=== PATIENT | female | born 1950 | race Caucasian/White ===

== ENCOUNTER → 2016-05-10 | Outpatient (CLI) | payer OTHER | LOC: RAD 12:12 | DX: I50.9 Heart failure, unspecified (principal); I25.10 Atherosclerotic heart disease of native coronary artery without angina pectoris | CPT/HCPCS: 71010; 71020 ==

== ENCOUNTER 2016-10-23 19:09 | Inpatient (IN) | payer OTHER, MEDICARE ==
[~2016-10-23] VITALS: Ht 162.6 cm; Wt 102.1 kg
[2016-10-23 19:42] LABS: BASOPHIL COUNT 0.1 K/uL (0-0.1); EOSINOPHIL (%) 2.1 % (0-5); EOSINOPHIL COUNT 0.2 K/uL (0-0.3); HEMATOCRIT 38.7 % (36.0-46.0); IMMATURE GRANULOCYTE (%) 0.4 % (0.0-0.7); INSTRUMENT ABS NEUTROPHIL CT 6.1 K/uL; MCH 30.9 PG (29.0-34.0); MCHC 34.4 G/DL (30.0-36.0); MEAN PLAT.VOLUME 11.3 uM^3 (9.5-12.4); MONOCYTE (%) 9.2 % (3-12); MONOCYTE COUNT 0.8 K/uL (0-0.8); NEUTROPHIL COUNT 6.1 K/uL (1.8-6.4); PLATELET COUNT 172 K/uL (156-360); RBC DIS.WIDTH-CV 13.3 % (11.8-14.6); RBC DIS.WIDTH-SD 43.6 % (39-53); WHITE BLOOD COUNT 8.1 K/uL (4.1-10.2)
[2016-10-23 19:55] LABS: CHLORIDE 91 mEq/L (99-109); POTASSIUM 4.2 mEq/L (3.7-5.4); SODIUM 124 mEq/L (136-147)
[2016-10-23 19:58] LABS: GLUCOSE 148 mg/dL (70-99)
[2016-10-23 19:59] LABS: ANION GAP 10 MEQ/L (2-14)
[2016-10-23 20:00] LABS: TOTAL BILIRUBIN 0.6 mg/dL (0.0-1.0)
[2016-10-23 20:01] LABS: ALKALINE PHOSPHATASE 146 IU/L (3-129); GFR ESTIMATE (CALCULATED) > 59 mL/min/
[2016-10-23 20:02] LABS: UREA NITROGEN (BUN) 22 mg/dL (9-23)
[2016-10-23 20:05] LABS: TROP-I INTERPRETATION NEGATIVE; TROPONIN-I 0.08 ng/mL (0.0-0.30)
[2016-10-23 20:26] LABS: ADD MIUA? YES; BILIRUBIN NEGATIVE; BLOOD MODERATE; COLOR YELLOW ((YELLOW)); GLUCOSE (STRIP) NEGATIVE; KETONES NEGATIVE; LEUKOCYTES NEGATIVE; NITRITE NEGATIVE; PROTEIN (STRIP) NEGATIVE; SPECIFIC GRAVITY 1.012 (1.000-1.030); UROBILINOGEN 0.2 MG/DL (0.2-1.0)
[2016-10-23 20:32] LABS: BACTERIA NONE SEEN /HPF; EPITHELIAL CELLS RARE /HPF; HYALINE CASTS TNTC /LPF; MUCUS TRACE /LPF; RED BLOOD CELLS 0-5 /HPF (0-5); WHITE BLOOD CELLS 0-5 /HPF (0-5)
[2016-10-23] MEDS ORDERED: ZOFRAN4 MG PO (23:00)
[2016-10-23] MEDS ORDERED: LASIX80 MG PO (23:01)
[2016-10-23] MEDS ORDERED: SYNTHROID125 MCG PO (23:02)
[2016-10-23] MEDS ORDERED: MIRALAX17 GM PO (23:04)
[2016-10-23] MEDS ORDERED: ROCEPHIN1000 MG IM (23:05)
[2016-10-23] MEDS ORDERED: SENNA8.6 MG PO ×2 (23:06→23:08)
[2016-10-23] MEDS ORDERED: ALDACTONE25 MG PO (23:09)
[2016-10-23] MEDS ORDERED: BUMEX1 MG PO (23:11)
[2016-10-23] MEDS ORDERED: HUMULIN N100 UNITS/ SC (23:15)
[2016-10-23] MEDS ORDERED: HUMULIN R100 UNITS/ SC (23:16)
[2016-10-23] MEDS ORDERED: NEURONTIN800 MG PO (23:19)
[2016-10-23] MEDS ORDERED: ARTIFICIAL TEAR1510 BOTH EYES (23:20)
[2016-10-23] MEDS ORDERED: ATIVAN0.5 MG PO (23:21)
[2016-10-23] MEDS ORDERED: COMPAZINE10 MG PO (23:22)
[2016-10-23] MEDS ORDERED: DULCOLAX10 MG PR (23:24)
[2016-10-23] MEDS ORDERED: GLUCOSE GEL38 GM PO (23:25)
[2016-10-23] MEDS ORDERED: MORPHINE CON20 MG/M1 PO (23:29)
[2016-10-23] MEDS ORDERED: NITROSTAT0.4 MG SL (23:32)
[2016-10-23] MEDS ORDERED: ANASPAZ0.125 MG PO (23:32)
[2016-10-23] MEDS ORDERED: TYLENOL EXTRA500 MG PO (23:34)
[2016-10-24 02:10] VITALS: BP 111/66
[2016-10-24 02:29] LABS: TROP-I INTERPRETATION NEGATIVE; TROPONIN-I 0.07 ng/mL (0.0-0.30)
[2016-10-24] MEDS ORDERED: CLARITIN,ALAVAR10 MG PO (03:07)
[2016-10-24] MEDS ORDERED: ALDACTONE25 MG PO (03:09)
[2016-10-24 03:46] VITALS: BP 115/68
[2016-10-24 06:21] LABS: POINT-OF-CARE METER ID UU14162508
[2016-10-24 08:10] VITALS: BP 121/68
[2016-10-24 09:11] LABS: ANION GAP 7 MEQ/L (2-14); CHLORIDE 88 MEQ/L (99-109); POTASSIUM 4.4 MEQ/L (3.7-5.4); SAMPLE HEMOLYSIS CHECK 0; SAMPLE ICTERIC CHECK 0; SAMPLE LIPEMIA CHECK 0; SODIUM 123 MEQ/L (136-147); TOTAL BILIRUBIN 0.8 MG/DL (0.0-1.0)
[2016-10-24 09:16] LABS: ALKALINE PHOSPHATASE 126 IU/L (3-129); GFR ESTIMATE (CALCULATED) > 59 mL/min/; UREA NITROGEN (BUN) 24 mg/dL (9-23)
[2016-10-24 09:18] LABS: GLUCOSE 82 mg/dL (70-99)
[2016-10-24 09:21] LABS: TROP-I INTERPRETATION NEGATIVE; TROPONIN-I 0.07 ng/mL (0.0-0.30)
[2016-10-24 11:50] VITALS: BP 125/80
[2016-10-24 12:27] LABS: POINT-OF-CARE METER ID UU14162508
[2016-10-24 15:36] VITALS: BP 124/70
[2016-10-24 16:50] LABS: POINT-OF-CARE METER ID UU14162508
[2016-10-24 20:22] VITALS: BP 127/85
[2016-10-24 21:13] LABS: POINT-OF-CARE METER ID UU14162508
[2016-10-25 00:02] VITALS: BP 119/79
[2016-10-25 03:11] LABS: POINT-OF-CARE METER ID UU14162508
[2016-10-25 03:50] VITALS: BP 138/83
[2016-10-25 06:18] LABS: POINT-OF-CARE METER ID UU14162508
[2016-10-25 07:21] LABS: BASOPHIL COUNT 0.1 K/uL (0-0.1); EOSINOPHIL (%) 4.1 % (0-5); EOSINOPHIL COUNT 0.3 K/uL (0-0.3); HEMATOCRIT 37.8 % (36.0-46.0); IMMATURE GRANULOCYTE (%) 0.7 % (0.0-0.7); IMMATURE GRANULOCYTE COUNT 0.1 K/uL; INSTRUMENT ABS NEUTROPHIL CT 4.9 K/uL; LYMPHOCYTE COUNT 1.4 K/uL (1.0-2.8); MCH 31.8 PG (29.0-34.0); MCHC 34.7 G/DL (30.0-36.0); MCV 91.7 FL (83-99); MEAN PLAT.VOLUME 11.7 uM^3 (9.5-12.4); MONOCYTE (%) 11.1 % (3-12); MONOCYTE COUNT 0.8 K/uL (0-0.8); NEUTROPHIL (%) 64.6 % (45-76); NEUTROPHIL COUNT 4.9 K/uL (1.8-6.4); PLATELET COUNT 162 K/uL (156-360); RBC DIS.WIDTH-CV 13.7 % (11.8-14.6); RBC DIS.WIDTH-SD 45.8 % (39-53); RED BLOOD COUNT 4.12 M/uL (3.80-5.20); WHITE BLOOD COUNT 7.6 K/uL (4.1-10.2)
[2016-10-25 07:44] LABS: ANION GAP 8 MEQ/L (2-14); CHLORIDE 89 MEQ/L (99-109); GFR ESTIMATE (CALCULATED) > 59 mL/min/; GLUCOSE 93 mg/dL (70-99); POTASSIUM 4.8 MEQ/L (3.7-5.4); SAMPLE HEMOLYSIS CHECK 1; SAMPLE ICTERIC CHECK 0; SAMPLE LIPEMIA CHECK 0; SODIUM 122 MEQ/L (136-147); UREA NITROGEN (BUN) 29 mg/dL (9-23); URIC ACID 8.4 mg/dL (3.1-9.2)
[2016-10-25 07:50] VITALS: BP 130/87
[2016-10-25 10:08] LABS: HBSG INDEX 0.17; HPCA INDEX 0.18
[2016-10-25 11:51] VITALS: BP 127/86
[2016-10-25 12:03] LABS: POINT-OF-CARE METER ID UU14162508
[2016-10-25 13:57] LABS: UR CREATININE CONCENTRATION 56.5 MG/DL
[2016-10-25 16:31] VITALS: BP 117/80
[2016-10-25 17:06] LABS: POINT-OF-CARE METER ID UU14208750
[2016-10-25 19:42] VITALS: BP 126/89
[2016-10-25 21:23] LABS: POINT-OF-CARE METER ID UU14208750
[2016-10-26] VITALS (7 sets, daily range): BP systolic 114–134; BP diastolic 61–87
[2016-10-26 06:18] LABS: BASOPHIL COUNT 0.1 K/uL (0-0.1); EOSINOPHIL (%) 2.5 % (0-5); EOSINOPHIL COUNT 0.2 K/uL (0-0.3); HEMATOCRIT 39.1 % (36.0-46.0); IMMATURE GRANULOCYTE (%) 0.7 % (0.0-0.7); IMMATURE GRANULOCYTE COUNT 0.1 K/uL; INSTRUMENT ABS NEUTROPHIL CT 6.7 K/uL; LYMPHOCYTE COUNT 0.9 K/uL (1.0-2.8); MCH 32.5 PG (29.0-34.0); MCV 92.7 FL (83-99); MEAN PLAT.VOLUME 11.4 uM^3 (9.5-12.4); MONOCYTE (%) 11.4 % (3-12); NEUTROPHIL (%) 74.4 % (45-76); NEUTROPHIL COUNT 6.7 K/uL (1.8-6.4); PLATELET COUNT 168 K/uL (156-360); RBC DIS.WIDTH-CV 13.9 % (11.8-14.6); RBC DIS.WIDTH-SD 46.4 % (39-53); RED BLOOD COUNT 4.22 M/uL (3.80-5.20); WHITE BLOOD COUNT 9.1 K/uL (4.1-10.2)
[2016-10-26 06:41] LABS: ANION GAP 9 MEQ/L (2-14); CHLORIDE 90 MEQ/L (99-109); GFR ESTIMATE (CALCULATED) 59 mL/min/; GLUCOSE 75 mg/dL (70-99); POTASSIUM 4.3 MEQ/L (3.7-5.4); SAMPLE HEMOLYSIS CHECK 0; SAMPLE ICTERIC CHECK 0; SAMPLE LIPEMIA CHECK 0; SODIUM 126 MEQ/L (136-147); UREA NITROGEN (BUN) 28 mg/dL (9-23)
[2016-10-26 07:09] LABS: POINT-OF-CARE METER ID UU14162508
[2016-10-26 11:06] LABS: POINT-OF-CARE METER ID UU14162508
[2016-10-26 16:18] LABS: POINT-OF-CARE METER ID UU14162508
[2016-10-26 21:12] LABS: POINT-OF-CARE METER ID UU14162508
[2016-10-27 02:46] LABS: POINT-OF-CARE METER ID UU14162508
[2016-10-27 04:01] VITALS: BP 112/57
[2016-10-27 06:30] LABS: POINT-OF-CARE METER ID UU14162508
[2016-10-27 07:17] LABS: BASOPHIL COUNT 0.1 K/uL (0-0.1); EOSINOPHIL (%) 6.3 % (0-5); EOSINOPHIL COUNT 0.5 K/uL (0-0.3); HEMATOCRIT 39.7 % (36.0-46.0); IMMATURE GRANULOCYTE (%) 0.4 % (0.0-0.7); INSTRUMENT ABS NEUTROPHIL CT 4.8 K/uL; MCH 30.4 PG (29.0-34.0); MCHC 32.5 G/DL (30.0-36.0); MCV 93.6 FL (83-99); MEAN PLAT.VOLUME 10.3 uM^3 (9.5-12.4); MONOCYTE (%) 11.9 % (3-12); MONOCYTE COUNT 0.9 K/uL (0-0.8); NEUTROPHIL (%) 67.2 % (45-76); NEUTROPHIL COUNT 4.8 K/uL (1.8-6.4); PLATELET COUNT 156 K/uL (156-360); RBC DIS.WIDTH-CV 14.3 % (11.8-14.6); RBC DIS.WIDTH-SD 47.7 % (39-53); RED BLOOD COUNT 4.24 M/uL (3.80-5.20); WHITE BLOOD COUNT 7.2 K/uL (4.1-10.2)
[2016-10-27 07:39] VITALS: BP 124/70
[2016-10-27 07:52] LABS: ANION GAP 8 MEQ/L (2-14); CHLORIDE 96 MEQ/L (99-109); GFR ESTIMATE (CALCULATED) 59 mL/min/; GLUCOSE 65 mg/dL (70-99); POTASSIUM 4.4 MEQ/L (3.7-5.4); SAMPLE HEMOLYSIS CHECK 0; SAMPLE ICTERIC CHECK 0; SAMPLE LIPEMIA CHECK 0; UREA NITROGEN (BUN) 29 mg/dL (9-23)
[2016-10-27 07:55] LABS: SODIUM 136 MEQ/L (136-147)
[2016-10-27 11:31] VITALS: BP 133/68
[2016-10-27 11:39] LABS: POINT-OF-CARE METER ID UU14162508
[2016-10-27] MEDS ORDERED: LASIX80 MG PO (13:22)
[2016-10-27] MEDS ORDERED: SAMSCA15 MG PO (13:23)
[2016-10-27 15:02] VITALS: BP 132/81
[2016-10-27 16:11] LABS: POINT-OF-CARE METER ID UU14162508
== END 2016-10-27 16:52 | DRG 291 ==
LOC: EME → EDBD 19:09 → EME 19:09 → 2EAST 10-24 00:07 → EDOF 10-24 00:07 → ENRESERV 10-24 00:08 → 2EAST 10-24 01:34
PROVIDERS: Emergency Medicine; Internal Medicine; Internal Medicine Nephrology; Student in an Organized Health Care Education/Training Program
DX: I13.0 Hypertensive heart and chronic kidney disease with heart failure and stage 1 through stage 4 chronic kidney disease, or unspecified chronic kidney disease (principal); I50.23 Acute on chronic systolic (congestive) heart failure; J98.11 Atelectasis; E87.1 Hypo-osmolality and hyponatremia; K80.00 Calculus of gallbladder with acute cholecystitis without obstruction; E11.40 Type 2 diabetes mellitus with diabetic neuropathy, unspecified; I25.10 Atherosclerotic heart disease of native coronary artery without angina pectoris; E03.9 Hypothyroidism, unspecified; E66.9 Obesity, unspecified; E78.5 Hyperlipidemia, unspecified; R63.5 Abnormal weight gain; J44.9 Chronic obstructive pulmonary disease, unspecified; I25.5 Ischemic cardiomyopathy; N18.9 Chronic kidney disease, unspecified; M19.90 Unspecified osteoarthritis, unspecified site; I20.9 Angina pectoris, unspecified; I44.0 Atrioventricular block, first degree; Z66 Do not resuscitate; Z51.5 Encounter for palliative care; K74.60 Unspecified cirrhosis of liver; E11.22 Type 2 diabetes mellitus with diabetic chronic kidney disease; I25.2 Old myocardial infarction; Z82.49 Family history of ischemic heart disease and other diseases of the circulatory system; Z95.1 Presence of aortocoronary bypass graft; Z79.4 Long term (current) use of insulin; Z68.38 Body mass index [BMI] 38.0-38.9, adult; R26.9 Unspecified abnormalities of gait and mobility; J96.21 Acute and chronic respiratory failure with hypoxia
CPT/HCPCS: 71010; 76705; 80048; 80053; 81003; 82533 91; 82570; 82948; 82977; 83935; 84100; 84156; 84300; 84439; 84443; 84484; 84550; 85025; 85379; 86803; 87040; 87086; 87340; 93005; 93306; 94799; 99281; 99285; J1644; J1815; J1940; J2405